=== PATIENT | male | born 1985 | race Caucasian/White ===

== ENCOUNTER 2019-01-30 13:25 | Inpatient (IN) | payer SELFPAY ==
--- NOTE | 2019-01-30 13:34 | ED Physician Documentation ---
General Adult - HISTORIAN Historian: patient - HPI Stated Complaint: chest pain Chief Complaint: General Adult Onset: minutes Timing: still present Severity: moderate Further Comments: yes (Pt is a 33 yo m with sudden onset R chest pain. Pt has some sx last evening, but now has sharp pain in R lower anterior lung field. Pt is a former smoker who quit 1 month ago. Pt has hx CHF and strong family hx of heart dz. Grandparent in 30's. Mother with significant heart dz. Pt has HTN and takes lisinopril 2.5 mg po qd and is rx'd lasix but has not taken it since he ran out a year ago. Pt is taking rapid shallow breaths on presentation and appear anxious and in some distress. SpO2 is in mid 95% RA. He is tachycardic with HR 125.) - ROS CONST: other (anxious) EYES/ENT: none CVS/RESP: chest pain, shortness of breath GI/: none MS/SKIN/LYMPH: none NEURO/PSYCH: anxiety - PAST HX Past History: other (CHF) Other History: none Surgeries/Procedures: none Allergies/Adverse Reactions: Allergies Allergy/AdvReac Type Severity Reaction Status Date / Time No Known Allergies Allergy Verified 01/30/19 14:11 Home Medications: Ambulatory Orders Medication Instructions Recorded Lisinopril [Prinivil] 2.5 mg PO DAILY 01/30/19 - SOCIAL HX Smoking History: quit less than 1 year - FAMILY HX Family History: Yes (heart dz, Mom; grandparent age 30's from heart dz.) - REVIEWED ASSESSMENTS Nursing Assessment Reviewed: Yes Vitals Reviewed: Yes Progress - Progress Progress: CXR: There is no infiltrate, effusion or pneumothorax. The heart is enlarged. Pulmonary vascular congestion is present. Impression: Cardiomegaly with congestion. Zofran 4 mg IV Morphine 2 mg IV x 2 CT chest with intravenous contrast History: Shortness of breath Technique: Images through the chest were obtained following intravenous contrast administration. Findings: There is a moderate right pleural effusion. Extensive right lower lobe infiltrate present. Mild right upper lobe infiltrate is present. There is no pneumothorax. Left lung is clear. The heart is enlarged. The pulmonary arteries enhance normally. There is suggestion of a filling defects and subsegmental branches of bilateral lower lobe pulmonary arteries. Impression: Moderate right effusion. Right upper and lower lobe infiltrates. Suspected bilateral lower lobe pulmonary emboli. Cardiomegaly. Rocephin 2 gm IV Blood cx - pending Admit to Dr. Hooper. - EKG/XRAY/CT EKG: rhythm (tachycardia ON=848; LAFB; non-specific T-wave abnormality.) ED Results Lab/Radiology - Orders Orders: ED Orders Category Date Time Status CHEST 1VIEW [RAD] Stat Exams 01/30/19 Ordered General Adult Physical Exam - PHYSICAL EXAM GENERAL APPEARANCE: moderate distress EENT: pharynx normal NECK: normal inspection, supple RESPIRATORY: rales (RLL), other (tachypneic) CVS: tachycardia ABDOMEN: soft, no organomegaly, normal bowel sounds BACK: normal inspection, no CVA tenderness SKIN: warm/dry, normal color EXTREMITIES: non-tender, normal range of motion, no evidence of injury, other (no palpable cords) NEURO: oriented X3, motor nml, sensation nml, other (anxious) Discharge Clincal Impression: Pleural effusion Pneumonia Qualifiers: Pneumonia type: due to unspecified organism Laterality: right Lung location: unspecified part of lung Qualified Code(s): J18.9 - Pneumonia, unspecified organism Pulmonary emboli Qualifiers: Pulmonary embolism type: unspecified Chronicity: acute Acute cor pulmonale presence: without acute cor pulmonale Qualified Code(s): I26.99 - Other pulmonary embolism without acute cor pulmonale Referrals: Primary Doctor,No [Primary Care Provider] - 2 Days Condition: Stable Disposition: ADMITTED INPATIENT Decision to Admit: [id number] Decision Time: 15:46
[2019-01-30] MEDS ORDERED: ONDANSETRON HCL/PF 4 MG/ 2ML VIAL IVP ONE (13:39)
[2019-01-30] MEDS ORDERED: MORPHINE SULFATE 5 MG/ML ML IV ONE ×2 (13:45→15:19)
[2019-01-30] MEDS ORDERED: 0.9 % SODIUM CHLORIDE 1,000 ML IV ONE (13:56)
[2019-01-30 13:59] LABS: eGFR (Non-African) > 60
--- NOTE | 2019-01-30 14:06 | Diagnostic Imaging Report ---
DAHLIA PARK [facility] [address] [facility] [address] [place] [address]. [id number] Report Submission Date: Jan 30, 2019 1:55:11 PM CDT Patient Study Name: NICKO FARIAS Date: Jan 30, 2019 1:25:23 PM CDT Modality Type: DX Gender: M Description: : 89 Institution: [facility] Physician: DAHLIA PARK Chest, AP portable History: Chest pain Findings: There is no infiltrate, effusion or pneumothorax. The heart is enlarged. Pulmonary vascular congestion is present. Impression: Cardiomegaly with congestion. Electronically signed on Jan 30, 2019 1:55:11 PM CDT by: Andrew PORTILLO
[2019-01-30 14:08] LABS: MEAN CORPUSCULAR HEMOGLOBIN 28.8 pg (28.0-34.0); SEGMENTED NEUTROPHILS % 80 % (39-79)
[2019-01-30 14:09] LABS: MONOCYTES % 6 % (0-11); TOXIC GRANULATION PRESENT
[2019-01-30 14:10] LABS: PLT EST. EST. AGREES W/PLT CT
--- NOTE | 2019-01-30 15:03 | Diagnostic Imaging Report ---
DAHLIA PARK [facility] [address] [facility] [address] [place] [address]. [id number] Report Submission Date: Jan 30, 2019 2:59:20 PM CDT Patient Study Name: APOORVA GERARDO Date: Jan 30, 2019 2:22:37 PM CDT MRN: [id number] Modality Type: CT\SR Gender: M Description: CT PE CHEST : 89 Institution: [facility] Physician: DAHLIA PARK CT chest with intravenous contrast History: Shortness of breath Technique: Images through the chest were obtained following intravenous contrast administration. Findings: There is a moderate right pleural effusion. Extensive right lower lobe infiltrate present. Mild right upper lobe infiltrate is present. There is no pneumothorax. Left lung is clear. The heart is enlarged. The pulmonary arteries enhance normally. There is suggestion of a filling defects and subsegmental branches of bilateral lower lobe pulmonary arteries. Impression: Moderate right effusion. Right upper and lower lobe infiltrates. Suspected bilateral lower lobe pulmonary emboli. Cardiomegaly. Electronically signed on Jan 30, 2019 2:59:20 PM CDT by: Andrew PORTILLO
[2019-01-30] MEDS ORDERED: CEFTRIAXONE SODIUM IV ONE (15:15)
[2019-01-30] MEDS ORDERED: SODIUM CHLORIDE 0.9% IV ONE (15:15)
[2019-01-30] MEDS ORDERED: cefTRIAXone SODIUM 1 GM INJ ONE (15:31)
[2019-01-30] MEDS ORDERED: 0.9 % SODIUM CHLORIDE 250 ML IV ONE ×2 (15:32→16:49)
[2019-01-30] MEDS ORDERED: IPRATROPIUM/ALBUTEROL SULFATE 3 ML AMPUL.NEB NEB PRN (15:58)
[2019-01-30] MEDS ORDERED: AZITHROMYCIN 500 MG in 0.9 % SODIUM CHLORIDE 250 ML IV SCH (16:00)
[2019-01-30 16:36] VITALS: BMI 25.7
[2019-01-30] MEDS ORDERED: traMADol HCL 50 MG TABLET PO PRN (16:40)
[2019-01-30] MEDS ORDERED: AZITHROMYCIN 500 MG VIAL IV ONE (16:49)
[2019-01-30] MEDS ORDERED: traMADol HCL 50 MG TABLET ONE (17:14)
[2019-01-30] MEDS ORDERED: IPRATROPIUM/ALBUTEROL SULFATE 3 ML AMPUL.NEB NEB ONE (18:22)
[2019-01-30] MEDS ORDERED: 0.9 % SODIUM CHLORIDE 1,000 ML IV SCH (18:30)
[2019-01-30] MEDS ORDERED: 0.9 % SODIUM CHLORIDE 0 ML IV ONE (18:30)
--- NOTE | 2019-01-30 18:40 | History and Physical Report ---
History of Present Illnes - History of Present Illness Reason for Visit: dyspnea History of Present Illness: 33yo white male who was admitted to the ED. Patient states that he has a history of hypertension and CHF from unkown cause. Has stopped taking lasix some time ago. Over the last 24hr he has developed some right sided chest pain that is pleuritic in nature. Has had a slight cough productive at time of clear fluids. No hemphysis noted. - Past Medical History Cardiac: CHF, HTN - Past Surgical History Past Surgical History: None - Past Social History Smoke: Quit (less thenon e year ago) Alcohol: Rare Drugs: None Lives: Alone - Health Maintenance Health Maintenance: denies: Influenza Vaccine, Pneumococcal Vaccine Pneumonia Vaccine: No Resuscitation Status: Resusciation Status Resuscitation Status Full Code - Unable to Obtain History Unable to Obtain: Yes Review of Systems - Review of Systems Constitutional: Fever, Chills Eyes: negative: pain, vision change ENT: negative: Nose Discharge Respiratory: Cough, Shortness of Breath, SOB with Excertion. negative: Hemoptysis Cardiovascular: Chest Pain (right) Gastrointestinal: negative: Nausea, Vomiting, Abdominal Pain, Diarrhea Genitourinary: negative: Dysuria, Frequency Musculoskeletal: negative: Back Pain Skin: negative: Rash Neurological: negative: Weakness, Numbness - Medications/Allergies Allergies/Adverse Reactions: Allergies Allergy/AdvReac Type Severity Reaction Status Date / Time No Known Allergies Allergy Verified 01/30/19 14:11 Home Medications: Home Medications Lisinopril [Prinivil] 2.5 mg PO DAILY 01/30/19 Current Inpatient Medications: Current Inpatient Medications Albuterol/Ipratropium (Duoneb) 3 ml NEB Q4 PRN PRN Reason: Wheezing Apixaban (Eliquis) 10 mg PO BID LORI Apixaban (Eliquis) 2.5 mg PO DAILY [facility] Azithromycin 500 mg/ Sodium (Chloride) 250 mls @ 125 mls/hr IV Q24H LORI Stop: 02/09/19 15:59 Last Admin: 01/30/19 17:01 Dose: 125 mls/hr Ceftriaxone Sodium 2 gm/ (Sodium Chloride) 50 mls @ 100 mls/hr IV DAILY [facility] Sodium Chloride (Normal Saline) 1,000 mls @ 1,000 mls/hr IV .Q1H [facility] Lisinopril (Prinivil) 2.5 mg PO DAILY [facility] Sodium Chloride (Normal Saline Flush) 3 ml IV BID [facility] Tramadol HCl (Ultram) 50 - 100 mg PO Q6H PRN PRN Reason: pain Last Admin: 01/30/19 17:31 Dose: 100 mg Exam - Exam Vital Signs: Vital Signs (72 hours) 01/30/19 01/30/19 01/30/19 13:25 13:34 14:04 Temperature 99.2 F Pulse Rate 122 H 118 H Pulse Rate [ Left Brachial] Pulse Rate [ 122 H Left Pulse ox] Respiratory 32 H Rate Blood Pressure 162/106 [Left Arm] O2 Sat by Pulse 97 97 97 Oximetry 01/30/19 01/30/19 01/30/19 14:30 15:00 15:30 Temperature Pulse Rate 121 H 117 H 115 H Pulse Rate [ Left Brachial] Pulse Rate [ Left Pulse ox] Respiratory Rate Blood Pressure [Left Arm] O2 Sat by Pulse 96 95 94 Oximetry 01/30/19 01/30/19 01/30/19 16:06 16:09 16:25 Temperature 99.2 F 98.3 F 98.3 F Pulse Rate Pulse Rate [ Left Brachial] Pulse Rate [ 110 H 119 H 119 H Left Pulse ox] Respiratory 32 H 34 H 34 H Rate Blood Pressure 136/103 122/87 122/87 [Left Arm] O2 Sat by Pulse 98 97 97 Oximetry 01/30/19 01/30/19 01/30/19 16:30 16:31 17:00 Temperature 98.3 F Pulse Rate 109 H 122 H Pulse Rate [ 119 H Left Brachial] Pulse Rate [ Left Pulse ox] Respiratory 56 H Rate Blood Pressure 122/87 [Left Arm] O2 Sat by Pulse 97 97 96 Oximetry 01/30/19 01/30/19 01/30/19 17:30 17:43 17:44 Temperature Pulse Rate 122 H 120 H Pulse Rate [ Left Brachial] Pulse Rate [ Left Pulse ox] Respiratory Rate Blood Pressure [Left Arm] O2 Sat by Pulse 98 98 Oximetry General: Oriented to Person, Oriented to Time, Cooperative. No: Alert (lethargic), Oriented to Place HEENT: Atraumatic, Dentition Normal. No: Mouth Mucous membr. moist/[place] (pale) Neck: Stridor Lungs: Respiratory Distress (shallow breathing with tachypnea at 30), Rales (RLL). No: Speaks full Sentences, Wheezes Cardiovascular: Normal S1, Normal S2, No murmurs, Tachycardia (105) Abdomen: Normal bowel sounds, Soft, No tenderness, No masses Integumentary: Pale Extremities: No clubbing, No cyanosis Neurological: Strength Equal Bilat, Normal tone Psych/Mental Status: Mood NL, Appropriate Affect. No: Mental status NL (lethargic) - Laboratory Results Laboratory Results: Laboratory Results 01/30/19 01/30/19 01/30/19 13:35 13:35 13:35 WBC 22.70 H RBC 5.28 H Hgb 15.2 Hct 47.0 MCV 89.0 MCH 28.8 MCHC 32.4 RDW 14.9 H Plt Count 312 Seg Neutrophils % 80 H Band Neutrophils % 3 Lymphocytes % 6 L Monocytes % 6 Reactive Lymphocytes 5 Toxic Granulation Present Platelet Estimate Est. agrees w/plt ct RBC Morph Comment Normal PT INR APTT D-Dimer 2666 H Sodium 135 L Potassium 4.3 Chloride 98 Carbon Dioxide 25 BUN 17 Creatinine 1.11 Est GFR ( Amer) > 60 Est GFR (Non-Af Amer) > 60 Glucose 146 H Calcium 8.8 Total Bilirubin 3.4 H AST 44 ALT 32 Alkaline Phosphatase 81 Creatine Kinase 63 CK-MB (CK-2) 0.6 Troponin I < 0.03 L Total Protein 7.8 Albumin 4.1 Lipase 39 01/30/19 01/30/19 13:35 13:35 WBC RBC Hgb Hct MCV MCH MCHC RDW Plt Count Seg Neutrophils % Band Neutrophils % Lymphocytes % Monocytes % Reactive Lymphocytes Toxic Granulation Platelet Estimate RBC Morph Comment PT 12.7 H INR 1.22 H APTT 28.6 D-Dimer Sodium Potassium Chloride Carbon Dioxide BUN Creatinine Est GFR ( Amer) Est GFR (Non-Af Amer) Glucose Calcium Total Bilirubin AST ALT Alkaline Phosphatase Creatine Kinase CK-MB (CK-2) Troponin I Total Protein Albumin Lipase Assessment/Plan - Assessment/Plan (1) Pleural effusion Status: Acute Current Visit: Yes (2) Pneumonia Status: Acute Current Visit: Yes Qualifiers: Pneumonia type: due to unspecified organism Laterality: right Lung location: unspecified part of lung Qualified Code(s): J18.9 - Pneumonia, unspecified organism Assessment: RLL and RML infiltrates with right pleural effusion. (3) Pulmonary emboli Status: Acute Current Visit: Yes Qualifiers: Pulmonary embolism type: unspecified Chronicity: acute Acute cor pulmonale presence: without acute cor pulmonale Qualified Code(s): I26.99 - Other pulmonary embolism without acute cor pulmonale Assessment: filling defect on CT scam to bilateral lower pulmonary arteries. VTE Assessment - RISK FACTOR SCORE VTE RISK FACTOR SCORES: ACUTE INFECTION OTHER THEN SEPSIS - RISK VTE LOW RISK: SCORE OF 1 OR LESS (RISK PROXIMAL DVT 0.4%) NO PROPHYLAXIS NEEDED (on eliquis)
[2019-01-30] MEDS ORDERED: HEPARIN SODIUM 5000 UNIT/1 ML ONE ×2 (18:52→19:02)
[2019-01-30] MEDS ORDERED: APIXABAN 2.5 MG TABLET PO SCH ×2 (19:00→21:00)
[2019-01-30] MEDS ORDERED: DEXTROSE 5 % IN WATER 500 ML IV ONE (19:03)
[2019-01-30] MEDS ORDERED: DEXTROSE 5 % IN WATER 250 ML IV ONE (19:03)
--- NOTE | 2019-01-30 19:27 | Discharge Summary ---
[facility] Discharge Date: 01/30/19 (Transfer [facility]) History of Present Illness: 33yo white male who was admitted to the ED. Patient states that he has a history of hypertension and CHF from unkown cause. Has stopped taking lasix some time ago. Over the last 24hr he has developed some right sided chest pain that is pleuritic in nature. Has had a slight cough productive at time of clear fluids. No hemphysis noted. Home Medications: Ambulatory Orders Medication Instructions Recorded Lisinopril [Prinivil] 2.5 mg PO DAILY 01/30/19 Allergies/Adverse Reactions: Allergies Allergy/AdvReac Type Severity Reaction Status Date / Time No Known Allergies Allergy Verified 01/30/19 14:11 Patient Problems: Current Active Problems Problem Status Onset Pleural effusion Acute Pneumonia Acute Pulmonary emboli Acute Discharge Summary: Patient was admitted to acute care and started on IV Levaquin and Azithromycin. Patient was started on IV fluids of NS. Patient was able to maintain SAO2 in 95- 100% with supplemental oxygen. Patient was order Eliquis but was not given by the time of my arrival. Patient was given 5000 units of heparin IV, and started on drip at 13mg/hr. Patient became more tachypnic and continued to have some mild tachycardia. Patient dropped his BP into the 80s systolic. Patient was given 500 cc bolus and another IV line was started and NS was started with it. A total of about 1300cc has been given at the time of transfer. Patient continued to have some hypotension and was started on dopamine drip and titrated up to 20mcg/kg. BP did respond and patient became more mentally alert with systolic at 123 at the time of transfer. Patient continues to complain of right sided chest pain that is pleuritic. Because of patient's deteriation in condition it was felt that he need emergent transfer via helicopter to [facility]. At the time of transfer patient was responding mentally better. Patient transferred in stable but critical condition.
[2019-01-30 20:47] VITALS: BP 86/58
[2019-01-30] MEDS ORDERED: SALINE FLUSH 10 ML DISP.SYRIN IV SCH (21:00)
[2019-01-31] MEDS ORDERED: CEFTRIAXONE SODIUM IV SCH (09:00)
[2019-01-31] MEDS ORDERED: LISINOPRIL 2.5 MG TABLET PO SCH (09:00)
[2019-01-31] MEDS ORDERED: SODIUM CHLORIDE 0.9% IV SCH (09:00)
== END 2019-01-30 19:28 | disposition short-term general hospital (02) | DRG 175 ==
LOC: ED 13:25 → SOUTH 16:00
PROVIDERS: ADMIT Family Medicine; ATTEND Family Medicine
DX: I26.99 Other pulmonary embolism without acute cor pulmonale (principal); J18.9 Pneumonia, unspecified organism; I51.7 Cardiomegaly; I10 Essential (primary) hypertension; R07.89 Other chest pain; R09.89 Other specified symptoms and signs involving the circulatory and respiratory systems; Z87.891 Personal history of nicotine dependence; Z82.49 Family history of ischemic heart disease and other diseases of the circulatory system
CPT/HCPCS: 36600; 71045; 71275; 80053; 82550; 82553; 83605; 83690; 83880; 84484; 85025; 85379; 85610; 85730; 87040; 93005; 96365; 96375; 99284; 99285; J0456; J0696; J1644; J2405; J7030; J7050; Q9967; 99234; J7060; S1016